=== PATIENT | male | born 1985 | race American Indian/Alaskan Native ===

== ENCOUNTER 2019-10-20 19:44 | Emergency (ER) | payer OTHER ==
--- NOTE | 2019-10-20 22:14 | XRay Report ---
Left wrist 2 views INDICATION: Left wrist pain IMPRESSION: No fracture or subluxation of the left wrist is identified. Signer Name: Jones Neil MD Signed: 10/20/2019 10:10 PM Workstation Name: [id number]
--- NOTE | 2019-10-20 22:19 | XRay Report ---
Left knee 2 views INDICATION: Left knee pain following injury IMPRESSION: Mild prepatellar soft tissue edema. There is a avulsion fracture identified involving the fibular head. Small knee effusion. There is moderate degenerative changes within the knee, primarily the medial femorotibial compartment region. Signer Name: Jones Neil MD Signed: 10/20/2019 10:14 PM Workstation Name: [id number]
--- NOTE | 2019-10-20 22:19 | XRay Report ---
Lumbar spine 3 views INDICATION: Low back pain following injury IMPRESSION: No acute fracture or subluxation of the lumbar spine is identified. 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 Signer Name: Jones Neil MD Signed: 10/20/2019 10:14 PM Workstation Name: [id number]
[2019-10-20] MEDS ORDERED: IBUPROFEN 800 MG TAB PO ONE (22:20)
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
[2019-10-21 05:31] VITALS: BP 170/86
== END 2019-10-20 23:43 | disposition home or self-care (01) ==
LOC: ED 19:44
DX: S82.832A Other fracture of upper and lower end of left fibula, initial encounter for closed fracture (principal); S63.502A Unspecified sprain of left wrist, initial encounter; X58.XXXA Exposure to other specified factors, initial encounter; Y93.89 Activity, other specified; Y92.89 Other specified places as the place of occurrence of the external cause; Y99.8 Other external cause status
CPT/HCPCS: 72100

== ENCOUNTER 2021-04-12 15:51 | Emergency (ER) | payer SELFPAY ==
--- NOTE | 2021-04-12 18:40 | Event Note ---
ED Screening Note ED Screening Note: Patient is a 35-year-old male presents emergency room with complaints of left- sided and substernal chest pain that initially began a week and a half ago. Patient reports that last night at 11 PM his pain increased and got more frequent He states in the last week and a half he has vomited twice He states the pain feels like a pressure but denies any radiation of the pain He states that he also has bilateral upper quadrant pain He denies any chest pain currently He denies any fever, cough, diarrhea, leg swelling Patient denies any past medical history No allergies to medicines He endorses tobacco use 1 pack every 2 to 3 days He endorses marijuana use he endorses ETOH on the weekend He denies any family cardiac history He denies any recent travel, recent surgery, recent immobilization, hormone use This initial assessment/diagnostic orders/clinical plan/treatment(s) is/are subject to change based on patients health status, clinical progression and re- assessment by fellow clinical providers in the ED. Further treatment and workup at subsequent clinical providers discretion. Patient/guardian urged not to elope from the ED as their condition may be serious if not clinically assessed and managed. Initial orders include: CP protocol
--- NOTE | 2021-04-12 19:04 | XRay Report ---
CHEST 2 VIEWS INDICATION: Chest Pain. COMPARISON: FINDINGS: Support devices: None. Heart: Within normal limits. Lungs: No acute air space or interstitial disease. Pleura: No significant pleural effusion. No pneumothorax. Additional findings: None. IMPRESSION: 1. No acute findings. Signer Name: Hans Sales MD Signed: 04/12/2021 6:59 PM Workstation Name: [id number]
[2021-04-12 19:11] LABS: Basophils # (Auto) 0.1 K/mm3 (0.0-0.1); Basophils % (Auto) 0.5 % (0.0-1.8); Eosinophils # (Auto) 0.3 K/mm3 (0.0-0.4); Hematocrit 43.9 % (35.5-45.6); Hemoglobin 14.5 gm/dl (11.8-15.2); Lymphocytes % (Auto) 24.7 % (13.4-35.0); Mean Corpuscular HGB Conc 33 % (32-34); Mean Corpuscular Volume 78 fl (84-94); Monocytes # (Auto) 0.9 K/mm3 (0.0-0.8); Monocytes % (Auto) 5.7 % (0.0-7.3); Platelet Count 420 K/mm3 (140-440); Red Blood Count 5.63 M/mm3 (3.65-5.03); Red Cell Distribution Width 15.6 % (13.2-15.2)
[2021-04-12 19:32] LABS: Alanine Aminotransferase 13 units/L (7-56); Albumin 4.2 g/dL (3.9-5); BUN/Creatinine Ratio 8; Blood Urea Nitrogen 8 mg/dL (9-20); Calcium 9.3 mg/dL (8.4-10.2); Hemolysis Index 11
--- NOTE | 2021-04-12 22:39 | Cat Scan Report ---
CT ABDOMEN AND PELVIS WITH CONTRAST INDICATION / CLINICAL INFORMATION: Upper abd pain, Leukocytosis. TECHNIQUE: Axial CT images were obtained through the abdomen and pelvis after 100 cc Omnipaque [address] scans at this location are performed using CT dose reduction for [place] by means of automated exposure control. COMPARISON: None available. FINDINGS: LOWER CHEST: No significant abnormality. LIVER: No significant abnormality. GALLBLADDER: No significant abnormality. BILE DUCTS: No significant abnormality. PANCREAS: No significant abnormality. SPLEEN: No significant abnormality. ADRENALS: No significant abnormality. RIGHT KIDNEY / URETER: No significant abnormality. LEFT KIDNEY / URETER: No significant abnormality. STOMACH / SMALL BOWEL: Generalized moderate thickening of the stomach is noted with mild surrounding inflammation seen along the distal gastric body. No distinct mass or other significant abnormality. COLON: No significant abnormality. APPENDIX: No significant abnormality. PERITONEUM: No free fluid. No free air. No fluid collection. LYMPH NODES: No significant adenopathy. AORTA / ARTERIES: No significant abnormality. IVC / VEINS: No significant abnormality. URINARY BLADDER: No significant abnormality. REPRODUCTIVE ORGANS: No significant abnormality. ADDITIONAL FINDINGS: None. SKELETAL SYSTEM: No significant abnormality. IMPRESSION: Suspected acute gastritis without other significant abnormalities. Signer Name: José You MD Signed: 04/12/2021 10:34 PM Workstation Name: [id number]
[2021-04-13] MEDS ORDERED: ONDANSETRON 4 MG ODT TAB PO ONE (01:08)
--- NOTE | 2021-04-13 02:27 | Emergency Department Report ---
ED Chest Pain HPI - General Chief Complaint: Chest Pain Stated Complaint: TIGHT CHEST PAIN/CRAMPING ON SIDE PUI?: No Time Seen by Provider: 04/13/21 02:11 Source: patient Mode of arrival: Ambulatory Limitations: No Limitations - History of Present Illness Initial Comments: Patient is a 35-year-old male that presents emergency room with complaints of epigastric pain, chest pain. Patient is chest pain and epigastric pain or bur hilton and squeezing sensation. Patient states the pain is in the substernal lower chest and in the epigastric region. Patient states the pain is nonradiating. Patient states there is no change with the pain with exertion. Patient states the pain is worse with vomiting and eating. Patient states certain foods will make the pain more intense. Patient states he has a lot of burping. Patient states he has tried antacids with some relief. Patient states the pain has been going on for 10 days. Patient states the pain is worsening. Patient denies recent travel. Patient denies recent international travel. Patient denies exposure to the novel coronavirus. Patient denies sick contacts. Patient denies fever and chills. Patient denies cough. Patient denies diarrhea. Patient denies coming in contact with anybody with symptoms of the novel coronavirus. MD Complaint: chest pain, other (Epigastric pain) -: Sudden, week(s) Onset: during rest, after eating Pain Location: substernal, epigastric Severity: moderate Severity scale (0 -10): 6 Quality: squeezing Consistency: constant Improves With: antacids Worsens With: other (Eating) re: nausea, vomting. denies: diaphoresis, dyspnea, sense of impending doom Other Symptoms: acid taste in mouth, burping. denies: cough, fever, syncope, rash, leg swelling, palpitations Treatments Prior to Arrival: none Aspirin use within the Past 7 Days: (0) No - Related Data On Oral Contraceptives: No Previous Rx's Medication Instructions Recorded Last Taken Type Cyclobenzaprine [Flexeril] 10 mg PO QHS PRN #10 tablet 09/16/18 Unknown Rx Ibuprofen [Motrin] 600 mg PO Q8H PRN #20 tablet 09/16/18 Unknown Rx Cyclobenzaprine [Flexeril] 10 mg PO TID PRN #10 tablet 10/20/19 Unknown Rx HYDROcodone/APAP 5-325 [[place] 1 each PO Q6HR PRN #14 tablet 10/20/19 Unknown Rx 5/325] Ibuprofen [Motrin 800 MG tab] 800 mg PO Q8HR PRN #20 tablet 10/20/19 Unknown Rx Esomeprazole Magnesium [NexIUM] 40 mg PO QDAY 30 Days #30 04/13/21 Unknown Rx capsule. Allergies Allergy/AdvReac Type Severity Reaction Status Date / Time No Known Allergies Allergy Unverified 07/13/14 13:42 Heart Score - HEART Score History: Slightly suspicious EKG: Normal Age: < 45 Risk factors: No known risk factors Troponin: < normal limit HEART Score: 0 - EKG Read Time Time EKG Completed: 16:44 EKG Read Time: 16:48 ED Review of Systems ROS: Stated complaint: TIGHT CHEST PAIN/CRAMPING ON SIDE Other details as noted in HPI Constitutional: denies: chills, fever Eyes: denies: eye pain, eye discharge, vision change ENT: denies: ear pain, throat pain Respiratory: denies: cough, shortness of breath, wheezing Cardiovascular: as per HPI, chest pain. denies: palpitations Endocrine: no symptoms reported Gastrointestinal: as per HPI, abdominal pain. denies: nausea, diarrhea Genitourinary: denies: urgency, dysuria Musculoskeletal: denies: back pain, joint swelling, arthralgia Skin: denies: rash, lesions Neurological: denies: headache, weakness, paresthesias Psychiatric: denies: anxiety, depression Hematological/Lymphatic: denies: easy bleeding, easy bruising ED Past Medical Hx - Past Medical History Previous Medical History?: Yes Hx Hypertension: Yes - Surgical History Past Surgical History?: No - Family History Family history: no significant - Social History Smoking Status: Current Every Day Smoker (1/3 pack per day) Substance Use Type: Alcohol (rarely) - Medications Home Medications: Home Medications Medication Instructions Recorded Confirmed Last Taken Type Cyclobenzaprine [Flexeril] 10 mg PO QHS PRN #10 tablet 09/16/18 Unknown Rx Ibuprofen [Motrin] 600 mg PO Q8H PRN #20 tablet 09/16/18 Unknown Rx Cyclobenzaprine [Flexeril] 10 mg PO TID PRN #10 tablet 10/20/19 Unknown Rx HYDROcodone/APAP 5-325 [[place] 1 each PO Q6HR PRN #14 tablet 10/20/19 Unknown Rx 5/325] Ibuprofen [Motrin 800 MG tab] 800 mg PO Q8HR PRN #20 tablet 10/20/19 Unknown Rx Esomeprazole Magnesium [NexIUM] 40 mg PO QDAY 30 Days #30 04/13/21 Unknown Rx capsule. ED Physical Exam - General Limitations: No Limitations General appearance: alert, in no apparent distress - Head Head exam: Present: atraumatic, normocephalic - Eye Eye exam: Present: normal appearance - ENT ENT exam: Present: mucous membranes moist - Neck Neck exam: Present: normal inspection - Respiratory Respiratory exam: Present: normal lung sounds bilaterally, chest wall tenderness (Lower chest wall tenderness palpation and reproduces symptoms.). Absent: respiratory distress - Cardiovascular Cardiovascular Exam: Present: regular rate, normal rhythm. Absent: systolic murmur, diastolic murmur, rubs, gallop - GI/Abdominal GI/Abdominal exam: Present: soft, tenderness (Epigastric tenderness to palpation and reproduces symptoms.), normal bowel sounds - Rectal Rectal exam: Present: deferred - Extremities Exam Extremities exam: Present: normal inspection - Back Exam Back exam: Present: normal inspection - Neurological Exam Neurological exam: Present: alert, oriented X3 - Psychiatric Psychiatric exam: Present: normal affect, normal mood - Skin Skin exam: Present: warm, dry, intact, normal color. Absent: rash ED Course Vital Signs 04/12/21 04/13/21 04/13/21 16:29 02:45 04:11 Temperature 98.6 F 98.2 F 98.2 F Pulse Rate 76 65 66 Respiratory 19 12 16 Rate Blood Pressure 144/87 170/101 149/78 [Right] O2 Sat by Pulse 98 99 100 Oximetry - Reevaluation(s) Reevaluation #1: I discussed all results and clinical findings with patient. I discussed plan of care with patient. Patient agrees with plan of care. Patient is stable for discharge. Patient will be discharged home. Patient given discharge instructions. Patient voiced understanding of discharge instructions. Since patient presents emergency room with chest pain, the patient information was faxed over to her local cardiology group for further evaluation and restratification of his chest pain. 04/13/21 02:45 Reevaluation #2: Patient states feeling better after GI cocktail. Patient's discharge initiated. 04/13/21 02:08 CALEB score - Caleb Score Age > 65: (0) No Aspirin use within the Past 7 Days: (0) No 3 or more CAD Risk Factors: (0) No 2 or more Angina events in past 24 hrs: (0) No Known CAD with more than 50% Stenosis: (0) No Elevated Cardiac Markers: (0) No ST Deviation Greater than 0.5mm: (0) No CALEB Score: 0 ED Medical Decision Making - Lab Data Result diagrams: 04/12/21 18:57 04/12/21 18:57 - EKG Data -: EKG Interpreted by Me EKG shows normal: sinus rhythm, axis, intervals, QRS complexes, ST-T waves Rate: normal - Radiology Data Radiology results: report reviewed, image reviewed interpreted by me: Chest x-ray: No pneumonia, no pneumothorax, no foreign body, no osseous findings, no acute findings CHEST 2 VIEWS INDICATION: Chest Pain. COMPARISON: FINDINGS: Support devices: None. Heart: Within normal limits. Lungs: No acute air space or interstitial disease. Pleura: No significant pleural effusion. No pneumothorax. Additional findings: None. IMPRESSION: 1. No acute findings. CT ABDOMEN AND PELVIS WITH CONTRAST INDICATION / CLINICAL INFORMATION: Upper abd pain, Leukocytosis. TECHNIQUE: Axial CT images were obtained through the abdomen and pelvis after 100 cc Omnipaque [address] scans at this location are performed using CT dose reduction for [employer] by means of automated exposure control. COMPARISON: None available. FINDINGS: LOWER CHEST: No significant abnormality. LIVER: No significant abnormality. GALLBLADDER: No significant abnormality. BILE DUCTS: No significant abnormality. PANCREAS: No significant abnormality. SPLEEN: No significant abnormality. ADRENALS: No significant abnormality. RIGHT KIDNEY / URETER: No significant abnormality. LEFT KIDNEY / URETER: No significant abnormality. STOMACH / SMALL BOWEL: Generalized moderate thickening of the stomach is noted with mild surrounding inflammation seen along the distal gastric body. No distinct mass or other significant abnormality. COLON: No significant abnormality. APPENDIX: No significant abnormality. PERITONEUM: No free fluid. No free air. No fluid collection. LYMPH NODES: No significant adenopathy. AORTA / ARTERIES: No significant abnormality. IVC / VEINS: No significant abnormality. URINARY BLADDER: No significant abnormality. REPRODUCTIVE ORGANS: No significant abnormality. ADDITIONAL FINDINGS: None. SKELETAL SYSTEM: No significant abnormality. IMPRESSION: Suspected acute gastritis without other significant abnormalities. - Medical Decision Making Patient is a 35-year-old male that presents emergency room with complaints of chest pain epigastric pain. Patient clinical findings consistent with gastritis. Patient had labs done which were essentially unremarkable. Patient had 2 - troponins. Patient had a chest x-ray which was negative for acute finding. I personally reviewed the chest x-ray. Patient had an EKG which showed normal sinus rhythm and no acute findings. I personally reviewed EKG. Patient also had a CT scan of the abdomen which shows gastritis. Patient's clinical findings are consistent with gastritis. Patient will be discharged home with a PPI. Patient does not require further emergency medical evaluation or inpatient evaluation. Patient given discharge instructions. On clinical exam, the patient had tenderness over the epigastric region. - Differential Diagnosis Gastritis, chest pain, esophagitis, gastroenteritis, Critical care attestation.: If time is entered above; I have spent that time in minutes in the direct care of this critically ill patient, excluding procedure time. ED Disposition Clinical Impression: Epigastric pain Chest pain Qualifiers: Chest pain type: unspecified Qualified Code(s): R07.9 - Chest pain, unspecified Gastritis Qualifiers: Gastritis type: unspecified gastritis Chronicity: acute Gastritis bleeding: wit hout bleeding Qualified Code(s): K29.00 - Acute gastritis without bleeding Disposition: DC-01 TO HOME OR SELFCARE Is pt being admited?: No Does the pt Need Aspirin: No Condition: Stable Instructions: Gastritis, Adult, [id number], Abdominal Pain, Adult, Chest Wall Pain, [id number], Nonspecific Chest Pain, Adult Additional Instructions: Patient to follow-up with primary care in 2 to 3 days. Patient to follow-up with rotary drier and cement gun operator in 2 to 3 days. Patient to rest. Patient to increase water. Patient to avoid strenuous exercise or heavy lifting until cleared by cement gun operator. Patient to avoid ibuprofen. Patient to eat a reflux diet. Patient to eat a heart healthy diet. Patient eat a low-salt diet. Patient to take Tylenol as needed for pain. Patient to take meds as directed. Patient to return to the ER if condition worsens, changes or new symptoms arise. Prescriptions: Esomeprazole Magnesium [NexIUM] 40 mg PO QDAY 30 Days #30 capsule. Referrals: PRIMARY CARE, [Primary Care Provider] - 2-3 Days DARIO CURRY MD [Staff Physician] - 2-3 Days ANISA HINDS MD [Staff Physician] - 2-3 Days JEAN-CLAUDE MIRAMONTES MD [Staff Physician] - 2-3 Days Time of Disposition: 02:45
[2021-04-13] MEDS ORDERED: ALUM-MAG HYDROXIDE-SIMETHICONE 200-200-20MG/5ML ORAL LIQD 30 ML PO ONE (02:31)
[2021-04-13] MEDS ORDERED: LIDOCAINE VISCOUS 2% 15 ML ORAL LIQD PO ONE (02:31)
[2021-04-13 04:12] VITALS: BP 149/78
--- NOTE | 2021-04-13 10:50 | Electrocardiograph Report ---
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
== END 2021-04-13 04:13 | disposition home or self-care (01) ==
LOC: ED 15:51
DX: K29.70 Gastritis, unspecified, without bleeding (principal); R07.89 Other chest pain; I10 Essential (primary) hypertension; F17.210 Nicotine dependence, cigarettes, uncomplicated; Z72.89 Other problems related to lifestyle; Z79.899 Other long term (current) drug therapy
CPT/HCPCS: 36415; 71046; 74177; 80053; 83690; 84484; 85025; 93005; 99284; Q9967; Q0162

== ENCOUNTER 2021-08-29 09:31 | Emergency (ER) | payer BC ==
[2021-08-29] MEDS ORDERED: KETOROLAC 60 MG/2 ML INJ IM ONE (09:56)
[2021-08-29] MEDS ORDERED: GABAPENTIN 300 MG CAP PO ONE (09:56)
--- NOTE | 2021-08-29 09:56 | Emergency Department Report ---
ED Headache HPI - General Chief Complaint: Headache Stated Complaint: HEADACHES FOR 5 DAYS Time Seen by Provider: 08/29/21 09:55 Source: patient Exam Limitations: no limitations - History of Present Illness Initial Comments: 36 yo aa comes to ER with a 1 week history of a very localized headache. It is just over the left temporal area. No light sensitivity. No nausea/vomiting. No hx of headaches. No trauma. Pain is aching in a very localized area The pain does not radiate over trig. nerve or to face. He is ambulatory and non ill appearing on exam neuro intact. Pt has taken otc aleve with no relief. Has not seen pcp. Timing/Duration: 1 week Quality: mild Head Injury Location: temporal Recent Head Trauma: no recent headache/trauma Modifying Factors: worse with: cold therapy, exposure to light, immobilization, medication, movement, rest, other Associated Symptoms: denies: denies symptoms, confusion, fatigue, facial pain, fever/chills, flushing, loss of consciousness, nausea/vomiting, nasal congestion, nasal drainage, numbness in legs/feet, rash, seizures, sinus infection, stiff neck, vision changes, weakness, other Allergies/Adverse Reactions: Allergies No Known Allergies Allergy (Unverified 07/13/14 13:42) Home Medications: Ambulatory Orders Ketorolac [Toradol] 10 mg PO Q6H PRN #12 tablet 08/29/21 ED Review of Systems ROS: Stated complaint: HEADACHES FOR 5 DAYS Other details as noted in HPI Comment: All other systems reviewed and negative ED Past Medical Hx - Past Medical History Previous Medical History?: Yes Hx Hypertension: Yes - Surgical History Past Surgical History?: No - Family History Family history: no significant - Social History Smoking Status: Current Every Day Smoker (1/3 pack per day) Substance Use Type: Alcohol (rarely) - Medications Home Medications: Home Medications Medication Instructions Recorded Confirmed Last Taken Type Ketorolac [Toradol] 10 mg PO Q6H PRN #12 tablet 08/29/21 Unknown Rx ED Physical Exam - General Limitations: No Limitations General appearance: alert, in no apparent distress - Head Head exam: Present: atraumatic, normocephalic - Expanded Head Exam Expanded 1 - very localized area of aching headache; no associated symptoms - Eye Eye exam: Present: normal appearance - ENT ENT exam: Present: mucous membranes moist - Neck Neck exam: Present: normal inspection - Respiratory Respiratory exam: Present: normal lung sounds bilaterally. Absent: respiratory distress - Cardiovascular Cardiovascular Exam: Present: regular rate, normal rhythm. Absent: systolic murmur, diastolic murmur, rubs, gallop - GI/Abdominal GI/Abdominal exam: Present: soft, normal bowel sounds - Rectal Rectal exam: Present: deferred - Extremities Exam Extremities exam: Present: normal inspection - Back Exam Back exam: Present: normal inspection - Neurological Exam Neurological exam: Present: alert, oriented X3 - Psychiatric Psychiatric exam: Present: normal affect, normal mood - Skin Skin exam: Present: warm, dry, intact, normal color. Absent: rash ED Course Vital Signs 08/29/21 09:49 Temperature 98.1 F Pulse Rate 84 Respiratory 18 Rate Blood Pressure 131/77 [Left] O2 Sat by Pulse 97 Oximetry ED Medical Decision Making - Medical Decision Making medicated with toradol and prednisone with pain relief immediately Vital Signs 08/29/21 09:49 Temperature 98.1 F Pulse Rate 84 Respiratory 18 Rate Blood Pressure 131/77 [Left] O2 Sat by Pulse 97 Oximetry neuro intact. no trauma no systemic symptoms no bells palsy no recent uri no trigeminal radiation pt dc home with dc plan of care including rx, hydration, follow up, diet and activity. He verbalizes understanding of plan of care. On d/c he has no pain. - Differential Diagnosis headache Critical care attestation.: If time is entered above; I have spent that time in minutes in the direct care of this critically ill patient, excluding procedure time. ED Disposition Clinical Impression: Headache Qualifiers: Headache type: unspecified Headache chronicity pattern: unspecified pattern Disposition: 01 HOME / SELF CARE / HOMELESS Is pt being admited?: No Does the pt Need Aspirin: No Condition: Stable Instructions: General Headache Without Cause, [id number] Additional Instructions: follow up with pcp in 48 hours if pain recurs meds as ordered today stay well hydrated Prescriptions: Ketorolac [Toradol] 10 mg PO Q6H PRN #12 tablet PRN Reason: Pain Referrals: DARIO CURRY MD [Staff Physician] - 3-5 Days Forms: Work/School Release Form(ED) Time of Disposition: 10:58
[2021-08-29 11:21] VITALS: BP 131/85
== END 2021-08-29 11:21 | disposition home or self-care (01) ==
LOC: ED 09:31
DX: R51.9 Headache, unspecified (principal); F17.200 Nicotine dependence, unspecified, uncomplicated; F10.20 Alcohol dependence, uncomplicated; I10 Essential (primary) hypertension
CPT/HCPCS: 96372; 99282; J1885